=== PATIENT | female | born 1965 | race Caucasian/White ===

== ENCOUNTER → 2023-05-06 06:59 | Outpatient (REF) | payer OTHER, SELFPAY | LOC: RSP 06:59 | PROVIDERS: ATTENDING PHYSICIAN Family Medicine | DX: F17.210 Nicotine dependence, cigarettes, uncomplicated (principal); R05.9 Cough, unspecified | CPT/HCPCS: 94060 ==

== ENCOUNTER → 2023-06-12 06:41 | Outpatient (REF) | payer OTHER, SELFPAY ==
[2023-06-12 10:43] LABS: Free T4 1.27 ng/dl (0.78-2.19)
[2023-06-12 10:57] LABS: TSH 5.26 uIU/ml (0.47-4.68)
== END ==
LOC: HWRAD 06:41
PROVIDERS: ATTENDING PHYSICIAN Family Medicine
DX: R06.02 Shortness of breath (principal); E05.90 Thyrotoxicosis, unspecified without thyrotoxic crisis or storm
CPT/HCPCS: 36415; 71046; 84439; 84443

== ENCOUNTER → 2023-07-03 07:29 | Outpatient (REF) | payer OTHER, SELFPAY | LOC: HWRAD 07:29 | PROVIDERS: ATTENDING PHYSICIAN Family Medicine | DX: Z87.891 Personal history of nicotine dependence (principal); F17.210 Nicotine dependence, cigarettes, uncomplicated; J01.91 Acute recurrent sinusitis, unspecified | CPT/HCPCS: 70486; 71271 ==

== ENCOUNTER → 2024-08-13 11:51 | Outpatient (REF) | payer OTHER, SELFPAY | LOC: HWRAD 11:51 | PROVIDERS: ATTENDING PHYSICIAN Family Medicine | DX: Z87.891 Personal history of nicotine dependence (principal) | CPT/HCPCS: 71271 ==

== ENCOUNTER → 2025-02-04 08:11 | Outpatient (REF) | payer OTHER, SELFPAY | LOC: HWRAD 08:11 | PROVIDERS: ATTENDING PHYSICIAN Family Medicine | DX: S46.012A Strain of muscle(s) and tendon(s) of the rotator cuff of left shoulder, initial encounter (principal) | CPT/HCPCS: 73030 ==